=== PATIENT | female | born 1970 | race Caucasian/White ===

== ENCOUNTER 2017-10-24 09:59 | Emergency (ER) | payer SELFPAY ==
[~2017-10-24] VITALS: Ht 160 cm; Wt 72.6 kg
[2017-10-24 10:40] VITALS: BP 113/69
--- NOTE | 2017-10-24 13:28 | ED EENT ---
History of Present Illness General Chief Complaint: Oral/Throat Problems Stated Complaint: THROAT SORE Nursing Triage Note: Pt c/o sore throat x2 weeks. Pt also has cut on tongue and pain radiating to L ear. Pt reports fever off and on x2 weeks. Source: patient Exam Limitations: no limitations History of Present Illness Date Seen by Provider: Oct 24, 2017 Time Seen by Provider: 13:23 Initial Comments To ER with a sore on the left side of her tongue for 2 weeks which she believes was cut by one of her fractured teeth, left ear pain, productive cough, sore throat. She [facility] not seen her primary care provider for this because she doesn't have any money for any medication even if it's on the $4. However, she would like some cough medication and some ultram she states. Advised that we can give her some Tessalon Perles antibiotics and steroids but no pain medication as her clinical exam is unremarkable. She became mad and left the emergency room without signing Timing/Duration: this morning Severity: moderate Location: mouth Prearrival Treatment: no prearrival treatment Allergies and Home Medications Allergies Coded Allergies: ketorolac (Unverified Allergy, Unknown, 10/24/17) Home Medications Unable to Obtain Active Prescriptions or Reported Meds Patient Home Medication List Home Medication List Reviewed: Yes Review of Systems Constitutional: see HPI, chills, fever Eyes: No Symptoms Reported Ears: No Symptoms Reported Nose: no symptoms reported Mouth: see HPI Throat: no symptoms reported Respiratory: no symptoms reported Cardiovascular: no symptoms reported Past [id number]-Pnpgyo Hx Patient Social History Alcohol Use: Denies Use Recreational Drug Use: No Smoking Status: Current Everyday Smoker Type Used: Cigarettes Recent Foreign Travel: No Contact w/Someone Who Travel: No Recent Infectious Disease Expo: No Recent Hopitalizations: No Seasonal Allergies Seasonal Allergies: No Surgeries Surgeries: Section, Hysterectomy, Orthopedic, Thyroidectomy, Tonsillectomy Respiratory Respiratory Disorders: COPD Cardiovascular History of Cardiac Disorders: Yes Cardiac Disorders: Hypertension Neurological History of Neurological Disord: Yes Neurological Disorders: Neuropathy Reproductive System [employer] History: Hysterectomy Genitourinary History of Genitourinary Disor: No Gastrointestinal History of Gastrointestinal Di: No Musculoskeletal History of Musculoskeletal Dis: Yes Musculoskeletal Disorders: Fibromyalgia Endocrine History of Endocrine Disorders: Yes (hx thyroid cancer) Cancer History of Cancer: Yes Cancer: Thyroid Psychosocial History of Psychiatric Problem: Yes Behavioral Health Disorders: Anxiety Integumentary History of Skin or Integumenta: No Physical Exam Vital Signs Vital Signs - First Documented 10/24/17 10:40 Temp 98.1 Pulse 79 Resp 18 B/P (MAP) 113/69 (84) Pulse Ox 97 O2 Delivery Room Air General Appearance: WD/WN, no apparent distress Eyes: bilateral eye normal inspection, bilateral eye PERRL, bilateral eye EOMI Ears: bilateral ear auricle normal, bilateral ear canal normal, bilateral ear TM normal, bilateral ear other (no erythema to either the tympanic membranes) Mouth/Throat: normal mouth inspection, pharynx normal, other (multiple fractured and carious teeth. There is a small 2 mm ulcerated sore on the left side of the tongue.) Neck: non-tender, full range of motion, lymphadenopathy (R) (mild), lymphadenopathy (L) (mild) Cardiovascular: regular rate, rhythm, no murmur Respiratory: normal breath sounds, no respiratory distress, no accessory muscle use Gastrointestinal: normal bowel sounds, non tender Neurologic/Psychiatric: alert, normal mood/affect, oriented x 3 Skin: normal color, warm/dry Progress/Results/Core Measures Results/Orders My Orders Orders - SYDNEE DUNCAN APRN Influenza A And B Antigens (10/24/17 10:51) Rapid Strep A Screen (10/24/17 10:51) Vital Signs/I&O Vital Sign - Last 12Hours 10/24/17 10:40 Temp 98.1 Pulse 79 Resp 18 B/P (MAP) 113/69 (84) Pulse Ox 97 O2 Delivery Room Air Blood Pressure Mean: 84 Departure Communication (Admissions) Progress Notes Advised the patient give her prescription for prednisone, antibiotics, Naprosyn and lidocaine. The tongue. Upset that she will not be receiving cough syrup for tramadol and she would like to leave without receiving these prescriptions. Impression Impression: Primary Impression: Left against medical advice Disposition: 07 AGAINST MEDICAL ADVICE Condition: Against Medical Advice Departure-Patient Inst. Referrals: NO,LOCAL PHYSICIAN (PCP/Family) Primary Care Physician Scripts Unable to Obtain Active Prescriptions or Reported Meds SYDNEE DUNCAN APRN Oct 24, 2017 13:28
== END 2017-10-24 13:26 | disposition left against medical advice (07) ==
LOC: ER 10:02
DX: J02.9 Acute pharyngitis, unspecified (principal); J44.9 Chronic obstructive pulmonary disease, unspecified; I10 Essential (primary) hypertension; F41.9 Anxiety disorder, unspecified; F17.210 Nicotine dependence, cigarettes, uncomplicated; Z87.59 Personal history of other complications of pregnancy, childbirth and the puerperium; Z90.710 Acquired absence of both cervix and uterus; Z85.850 Personal history of malignant neoplasm of thyroid; Z90.89 Acquired absence of other organs; Z88.6 Allergy status to analgesic agent
CPT/HCPCS: 99282